=== PATIENT | male | born 1955 | race Asian ===

== ENCOUNTER 2020-08-02 07:50 | Day surgery (SDC) | payer OTHER ==
[2020-07-29 10:10] VITALS: BMI 26.6
[2020-08-02] MEDS ORDERED: PROPOFOL 20 ML ONE (10:20)
[2020-08-02 11:47] VITALS: TEMP 98.2
[2020-08-02 11:49] VITALS: BP 112/80; PULSE 64
== END 2020-08-02 11:40 | disposition home or self-care (01) ==
LOC: FASU-ENDO 07:50
PROVIDERS: ATTEND Internal Medicine Gastroenterology
PROC: 3E0H8GC Introduction of Other Therapeutic Substance into Lower GI, Via Natural or Artificial Opening Endoscopic (ICD-10-PCS; 2020-08-02)
PROC: 0DB98ZX Excision of Duodenum, Via Natural or Artificial Opening Endoscopic, Diagnostic (ICD-10-PCS; 2020-08-02)
PROC: 0DB68ZX Excision of Stomach, Via Natural or Artificial Opening Endoscopic, Diagnostic (ICD-10-PCS; 2020-08-02)
PROC: 0DB48ZX Excision of Esophagogastric Junction, Via Natural or Artificial Opening Endoscopic, Diagnostic (ICD-10-PCS; 2020-08-02)
PROC: 0DBN8ZX Excision of Sigmoid Colon, Via Natural or Artificial Opening Endoscopic, Diagnostic (ICD-10-PCS; principal; 2020-08-02 10:20)
DX: Z12.11 Encounter for screening for malignant neoplasm of colon (principal); D12.5 Benign neoplasm of sigmoid colon; D12.7 Benign neoplasm of rectosigmoid junction; K29.50 Unspecified chronic gastritis without bleeding; K21.00 Gastro-esophageal reflux disease with esophagitis, without bleeding; B96.81 Helicobacter pylori [H. pylori] as the cause of diseases classified elsewhere; K64.8 Other hemorrhoids
CPT/HCPCS: 82962; 88305-TC; 88342-TC

== ENCOUNTER 2022-05-22 08:52 | Day surgery (SDC) | payer OTHER ==
[2022-05-19 13:52] VITALS: BMI 25.0
[2022-05-22 11:33] VITALS: RESP 16
[2022-05-22 13:32] VITALS: TEMP 98
[2022-05-22 13:43] VITALS: BP 147/81; PULSE 60
== END 2022-05-22 13:45 | disposition home or self-care (01) ==
LOC: FASU-ENDO 08:52
PROVIDERS: ATTEND Internal Medicine Gastroenterology
PROC: 0DBN8ZX Excision of Sigmoid Colon, Via Natural or Artificial Opening Endoscopic, Diagnostic (ICD-10-PCS; principal; 2022-05-22 12:58)
DX: Z12.11 Encounter for screening for malignant neoplasm of colon (principal); Z86.010 Personal history of colon polyps; D12.5 Benign neoplasm of sigmoid colon
CPT/HCPCS: 82962; 88305-TC